=== PATIENT | female | born 1950 | race Caucasian/White ===

== ENCOUNTER 2017-12-21 17:09 | Inpatient (IN) | payer MEDICARE, OTHER ==
[2017-12-21] MEDS: CEFEPIME 2GM/50 ML (PMX) 50 ML IVPB (20:27)
[2017-12-21] MEDS: ACETAMINOPHEN 325 MG TAB PO (20:27)
[2017-12-21] MEDS: SODIUM CHLORIDE 0.9% 1L BAG IV* (20:29)
[2017-12-21 20:34] LABS: ADD MAN DIFF? NO
[2017-12-21 20:37] LABS: ADD UMIC YES; UR AMORPHOUS CRYSTAL FEW /HPF (NONE SEEN); UR ASCORBIC ACID NEGATIVE (NEGATIVE); UR BACTERIA FEW /HPF (NONE SEEN); UR BILIRUBIN (Dip) 1+ mg/dL (NEGATIVE); UR BLOOD (Dip) NEGATIVE (NEGATIVE); UR CLARITY TURBID (CLEAR); UR COLOR YELLOW (YELLOW); UR GLUCOSE (Dip) 1+ mg/dL (NEGATIVE); UR KETONES (Dip) 1+ mg/dL (NEGATIVE); UR LEUKOCYTE ESTERASE (Dip) 1+ Leu/ul (NEGATIVE); UR MUCUS MODERATE /HPF (NONE SEEN); UR NITRITE (Dip) NEGATIVE (NEGATIVE); UR NONSQUAMOUS EPITHELIAL CELL 1 /HPF (NONE SEEN); UR RBC 2 /HPF (0-5); UR SQUAMOUS EPITHELIAL CELL MODERATE /HPF (FEW); UR TOTAL PROTEIN (Dip) 2+ mg/dl (NEGATIVE); UR UROBILINOGEN (Dip) NEGATIVE (NEGATIVE); UR WBC 12 /HPF (0-5)
[2017-12-21 20:38] LABS: ABNORMAL IP MESSAGE 1; BASOPHIL # 0.1 10^3/ul (0.0-0.1); BASOPHILS % 0.4 % (0.0-2.0); HEMATOCRIT 44.5 % (37.0-47.0); LYMPHOCYTES # 0.6 10^3/ul (0.8-2.9); LYMPHOCYTES % 3.7 % (15.0-51.0); MEAN CORPUSCULAR HEMOGLOBIN 26.5 pg (29.0-33.0); MEAN CORPUSCULAR HGB CONC 31.5 g/dl (32.0-37.0); MEAN CORPUSCULAR VOLUME 84.1 fl (82.0-101.0); MONOCYTE # 0.4 10^3/ul (0.3-0.9); MONOCYTES % 2.5 % (0.0-11.0); NEUTROPHILS % 93.1 % (39.0-77.0); PLATELET COUNT 182 10^3/UL (140-415); RED BLOOD COUNT 5.29 10^6/ul (4.20-5.40); RED CELL DISTRIBUTION WIDTH 14.1 % (11.5-14.5)
[2017-12-21] MEDS: ONDANSETRON 4 MG INJ IV (20:47)
[2017-12-21] MEDS: VANCOMYCIN 1 GM (PMX) 250 ML IVPB (20:48)
[2017-12-21] MEDS: HYDROmorphONE 1 MG/5 ML IV SYRINGE IV (20:48)
[2017-12-21 20:52] LABS: POSITIVE DIFF @See below
[2017-12-21 20:53] LABS: ALANINE AMINOTRANSFERASE 49 IU/L (13-69); ALBUMIN 4.1 g/dl (3.3-4.9); ALBUMIN/GLOBULIN RATIO 1.13; ALKALINE PHOSPHATASE 76 IU/L (42-121); AMYLASE 69 U/L (11-123); ANION GAP 17 (8-16); ASPARTATE AMINO TRANSFERASE 50 IU/L (15-46); BILIRUBIN,INDIRECT 0.4 mg/dl (0-1.1); BILIRUBIN,TOTAL 0.4 mg/dl (0.2-1.3); BLOOD UREA NITROGEN 21 mg/dl (7-20); CALCIUM 9.5 mg/dl (8.4-10.2); CARBON DIOXIDE 28 mmol/L (21-31); CHLORIDE 99 mmol/L (97-110); GLUCOSE 219 mg/dl (70-220); LIPASE 112 U/L (23-300); POTASSIUM 4.8 mmol/L (3.5-5.1); SODIUM 139 mmol/L (135-144); TOTAL PROTEIN 7.7 g/dl (6.1-8.1)
[2017-12-21 20:58] LABS: LACTIC ACID 2.3 mmol/L (0.5-2.0)
[2017-12-21 21:01] LABS: INR 0.94; PROTIME 12.7 Sec (11.9-14.9)
[2017-12-21 21:02] LABS: PARTIAL THROMBOPLASTIN TIME 28.7 Sec (25.0-35.0)
[2017-12-21 21:09] LABS: TROPONIN-I < 0.012 ng/ml (0.000-0.120)
[2017-12-21] MEDS: LORAZEPAM 2 MG INJ IV (21:33)
[2017-12-21] MEDS: SOD CHLORIDE 0.9% 100 ML (22:44)
[2017-12-21] MEDS: IOHEXOL 300MG/ML 150 ML BTL (22:44)
[2017-12-21 23:24] LABS: LACTIC ACID 1.4 mmol/L (0.5-2.0)
[2017-12-22] MEDS ORDERED: ONDANSETRON 4 MG INJ IV
[2017-12-22] MEDS: LORAZEPAM 2 MG INJ IV ×2 (00:13→12:16)
[2017-12-22 00:33] LABS: LACTIC ACID 1.7 mmol/L (0.5-2.0)
[2017-12-22] MEDS: LABETALOL HCL 20MG INJ IV (02:44)
[2017-12-22] MEDS: DEXTROSE 5%-0.45% NACL 1,000 ML IV (02:48)
[2017-12-22] MEDS ORDERED: GLUCAGON 1 MG INJ IM (03:00)
[2017-12-22] MEDS ORDERED: GLUCOSE GEL 15 GRAM TUBE BUCCAL (03:00)
[2017-12-22] MEDS ORDERED: DEXTROSE 50% 50 ML SYRINGE IV ×2 (03:00)
[2017-12-22] MEDS ORDERED: GLUCOSE GEL 15 GRAM TUBE PO ×2 (03:00)
[2017-12-22] MEDS: METHYLPREDNISOLONE 125 MG INJ IV (03:44)
[2017-12-22] MEDS: LEVALBUTEROL (NEB) 0.63 MG/3 ML AMP HHN (03:58)
[2017-12-22] MEDS ORDERED: IPRATROPIUM (NEB) 0.5 MG/2.5 ML AMP HHN (04:00)
[2017-12-22] MEDS ORDERED: morphine 2 MG INJ IV ×2 (04:30→14:30)
[2017-12-22] MEDS: ACETAMINOPHEN 325 MG TAB PO ×2 (05:27→17:59)
[2017-12-22] MEDS: INSULIN ASPART [NOVOLOG] 3 ML PEN SC ×6 (05:46→21:10)
[2017-12-22 06:39] LABS: WHITE BLOOD COUNT 11.4 10^3/ul (4.8-10.8)
[2017-12-22 06:39] LABS: ABNORMAL IP MESSAGE 1; HEMATOCRIT 41.3 % (37.0-47.0); HEMOGLOBIN 12.7 g/dl (12.0-16.0); MEAN CORPUSCULAR HEMOGLOBIN 26.2 pg (29.0-33.0); MEAN CORPUSCULAR HGB CONC 30.8 g/dl (32.0-37.0); MEAN CORPUSCULAR VOLUME 85.3 fl (82.0-101.0); MEAN PLATELET VOLUME 12.4 fl (7.4-10.4); PLATELET COUNT 169 10^3/UL (140-415); RED BLOOD COUNT 4.84 10^6/ul (4.20-5.40); RED CELL DISTRIBUTION WIDTH 14.4 % (11.5-14.5)
[2017-12-22 06:59] LABS: ADD MAN DIFF? YES; POSITIVE DIFF @See below
[2017-12-22 07:05] LABS: ALANINE AMINOTRANSFERASE 49 IU/L (13-69); ANION GAP 14 (8-16); ASPARTATE AMINO TRANSFERASE 45 IU/L (15-46); BLOOD UREA NITROGEN 13 mg/dl (7-20); CALCIUM 8.2 mg/dl (8.4-10.2); CARBON DIOXIDE 25 mmol/L (21-31); CHLORIDE 104 mmol/L (97-110); CREATININE 0.58 mg/dl (0.44-1.00); GLUCOSE 213 mg/dl (70-220); POTASSIUM 4.5 mmol/L (3.5-5.1); SODIUM 138 mmol/L (135-144)
[2017-12-22 07:06] LABS: ALBUMIN 3.5 g/dl (3.3-4.9); ALBUMIN/GLOBULIN RATIO 1.12; ALKALINE PHOSPHATASE 58 IU/L (42-121); BILIRUBIN,INDIRECT 0.2 mg/dl (0-1.1); BILIRUBIN,TOTAL 0.2 mg/dl (0.2-1.3); TOTAL PROTEIN 6.6 g/dl (6.1-8.1)
[2017-12-22] MEDS: CEFTRIAXONE 1 GM/50 ML (PMX) 50 ML IVPB (08:33)
[2017-12-22] MEDS: FAMOTIDINE 20 MG INJ IV (08:33)
[2017-12-22] MEDS: [UNRECOGNIZED DRUG - OTHER] XX ×3 (11:00→21:00)
[2017-12-22 11:07] LABS: CHOLESTEROL 112 mg/dl (100-200)
[2017-12-22 11:07] LABS: CHOL/HDL RATIO 2.9 RATIO; HDL CHOLESTEROL 38 mg/dl (35-98); LDL CHOLESTEROL,CALCULATED 56 mg/dl; TRIGLYCERIDES 88 mg/dl (0-149)
[2017-12-22 11:12] LABS: ANISOCYTOSIS 2+ (0-0); BAND NEUTROPHILS % (M) 18 % (0-4); LYMPHOCYTES #M 0.5 10^3/ul (0.8-2.9); LYMPHOCYTES % (M) 5 % (15-51); PLATELET ESTIMATE NORMAL; POLYCHROMASIA 3+ (0-0); SEGMENTED NEUTROPHILS (M) % 77 % (39-77)
[2017-12-22 11:12] LABS: HEMOGLOBIN A1C 9.3 % (0-5.9)
[2017-12-22] MEDS: HEPARIN 5,000 UNIT/0.5 ML VIAL SC (20:40)
[2017-12-22] MEDS ORDERED: NON-FORMULARY/PATIENT OWN MED (Omeprazole* (Prilosec*) 20 MG) PO (21:00)
[2017-12-23] MEDS: ACETAMINOPHEN 325 MG TAB PO ×2 (02:14→10:39)
[2017-12-23] MEDS: morphine LIQ (10 MG/5 ML) CUP PO ×2 (05:54→21:10)
[2017-12-23 07:44] LABS: ADD MAN DIFF? NO
[2017-12-23 07:52] LABS: BASOPHILS % 0.3 % (0.0-2.0); EOSINOPHILS % 0.1 % (0.0-7.0); HEMATOCRIT 38.7 % (37.0-47.0); HEMOGLOBIN 11.9 g/dl (12.0-16.0); LYMPHOCYTES % 20.2 % (15.0-51.0); MEAN CORPUSCULAR HEMOGLOBIN 26.7 pg (29.0-33.0); MEAN CORPUSCULAR HGB CONC 30.7 g/dl (32.0-37.0); MEAN PLATELET VOLUME 12.6 fl (7.4-10.4); MONOCYTE # 0.7 10^3/ul (0.3-0.9); MONOCYTES % 6.7 % (0.0-11.0); NEUTROPHIL # 7.1 10^3/ul (1.6-7.5); NEUTROPHILS % 72.5 % (39.0-77.0); PLATELET COUNT 171 10^3/UL (140-415); RED BLOOD COUNT 4.45 10^6/ul (4.20-5.40); RED CELL DISTRIBUTION WIDTH 14.1 % (11.5-14.5)
[2017-12-23 07:52] LABS: WHITE BLOOD COUNT 9.8 10^3/ul (4.8-10.8)
[2017-12-23] MEDS: INSULIN ASPART [NOVOLOG] 3 ML PEN SC ×4 (08:20→21:27)
[2017-12-23 08:29] LABS: PHOSPHORUS 3.2 mg/dl (2.5-4.9)
[2017-12-23 08:29] LABS: MAGNESIUM 1.5 mg/dl (1.7-2.5)
[2017-12-23 08:45] LABS: ANION GAP 12 (8-16); BLOOD UREA NITROGEN 16 mg/dl (7-20); CALCIUM 8.6 mg/dl (8.4-10.2); CARBON DIOXIDE 31 mmol/L (21-31); CHLORIDE 102 mmol/L (97-110); CREATININE 0.62 mg/dl (0.44-1.00); GLUCOSE 149 mg/dl (70-220); POTASSIUM 4.3 mmol/L (3.5-5.1); SODIUM 141 mmol/L (135-144)
[2017-12-23] MEDS: FUROSEMIDE 20 MG TAB PO (08:49)
[2017-12-23] MEDS: FAMOTIDINE 20 MG INJ IV (08:49)
[2017-12-23] MEDS: ASPIRIN (EC) 81 MG TAB PO (08:49)
[2017-12-23] MEDS: CEFTRIAXONE 1 GM/50 ML (PMX) 50 ML IVPB (08:49)
[2017-12-23] MEDS ORDERED: NON-FORMULARY/PATIENT OWN MED (Liraglutide (Victoza 3-Pak) 1.8 MG) SQ (09:00)
[2017-12-23] MEDS: HEPARIN 5,000 UNIT/0.5 ML VIAL SC ×2 (09:03→21:27)
[2017-12-23] MEDS: [UNRECOGNIZED DRUG - OTHER] XX ×2 (10:33→17:25)
[2017-12-23] MEDS ORDERED: CEPHALEXIN 500 MG CAP PO (14:00)
[2017-12-23] MEDS: AMOXICILLIN 500 MG CAP PO ×2 (14:49→21:09)
[2017-12-23] MEDS: ACET/BUTAL/CAFF TAB PO (14:49)
[2017-12-23] MEDS: LORAZEPAM 2 MG INJ IV (18:15)
[2017-12-23] MEDS ORDERED: ONDANSETRON 4 MG INJ IV (23:30)
[2017-12-24] MEDS: ZOLPIDEM 5 MG TAB PO (00:26)
[2017-12-24] MEDS: morphine LIQ (10 MG/5 ML) CUP PO (01:28)
[2017-12-24] MEDS: [UNRECOGNIZED DRUG - OTHER] XX ×2 (03:00→11:00)
[2017-12-24] MEDS: AMOXICILLIN 500 MG CAP PO ×3 (05:36→22:25)
[2017-12-24 06:00] LABS: ADD MAN DIFF? NO
[2017-12-24 06:55] LABS: ANION GAP 14 (8-16); BLOOD UREA NITROGEN 16 mg/dl (7-20); CALCIUM 9.1 mg/dl (8.4-10.2); CARBON DIOXIDE 32 mmol/L (21-31); CHLORIDE 96 mmol/L (97-110); CREATININE 0.49 mg/dl (0.44-1.00); GLUCOSE 194 mg/dl (70-220); POTASSIUM 4.3 mmol/L (3.5-5.1); SODIUM 138 mmol/L (135-144)
[2017-12-24] MEDS: INSULIN ASPART [NOVOLOG] 3 ML PEN SC ×4 (08:14→21:05)
[2017-12-24] MEDS: ASPIRIN (EC) 81 MG TAB PO (09:16)
[2017-12-24] MEDS: FUROSEMIDE 20 MG TAB PO (09:16)
[2017-12-24] MEDS: ERGOCALCIFEROL 50,000 UNIT CAP PO (09:17)
[2017-12-24] MEDS: HEPARIN 5,000 UNIT/0.5 ML VIAL SC ×2 (09:19→21:03)
[2017-12-24 11:28] LABS: BASOPHILS % 0.3 % (0.0-2.0); EOSINOPHILS # 0.1 10^3/ul (0.0-0.5); EOSINOPHILS % 0.5 % (0.0-7.0); HEMATOCRIT 41.4 % (37.0-47.0); HEMOGLOBIN 12.9 g/dl (12.0-16.0); LYMPHOCYTES # 1.9 10^3/ul (0.8-2.9); LYMPHOCYTES % 16.9 % (15.0-51.0); MEAN CORPUSCULAR HEMOGLOBIN 26.5 pg (29.0-33.0); MEAN CORPUSCULAR HGB CONC 31.2 g/dl (32.0-37.0); MEAN CORPUSCULAR VOLUME 85.2 fl (82.0-101.0); MEAN PLATELET VOLUME 11.7 fl (7.4-10.4); MONOCYTE # 0.8 10^3/ul (0.3-0.9); MONOCYTES % 6.9 % (0.0-11.0); NEUTROPHIL # 8.2 10^3/ul (1.6-7.5); NEUTROPHILS % 74.8 % (39.0-77.0); PLATELET COUNT 187 10^3/UL (140-415); RED BLOOD COUNT 4.86 10^6/ul (4.20-5.40); RED CELL DISTRIBUTION WIDTH 13.8 % (11.5-14.5)
[2017-12-24] MEDS: ACET/BUTAL/CAFF TAB PO ×3 (12:26→23:21)
[2017-12-24 13:58] LABS: AADO2 Arterial 30.8 mmHg (7.0-24.0); Allen Test ACCEPTAB; Arterial Base Excess 7.1 mmol/L (-3.0-3); Arterial Blood Gas Oxygen Sat 96.4 mmHG (95.0-98.0); Arterial COHb 0.7 % (0.0-3.0); Arterial Fraction of Oxyhgb 95.4 % (93.0-99.0); Arterial HCO3 30.6 mmol/L (22.0-26.0); Arterial MetHb 0.3 % (0.0-1.5); Arterial Total Hemglobin 13.4 g/dl (12.0-18.0); Arterial pCO2 39.4 mmhg (35-45); MODE ROOM AIR; Site Right Radial
[2017-12-24] MEDS: FUROSEMIDE 40 MG INJ IV (14:07)
[2017-12-24 15:05] LABS: D-DIMER 2031.62 ng/ml (<460)
[2017-12-24] MEDS: ACETAMINOPHEN 325 MG TAB PO (19:57)
[2017-12-24] MEDS ORDERED: ZOLPIDEM 5 MG TAB PO (21:00)
[2017-12-24] MEDS ORDERED: INSULIN GLARGINE [LANtus] 3 ML PEN SC (21:00)
[2017-12-24] MEDS: INSULIN GLARGINE [LANtus] 3 ML PEN SC (21:06)
[2017-12-24] MEDS: SOD CHLORIDE 0.9% 100 ML (22:08)
[2017-12-24] MEDS: IOHEXOL 100 ML (22:08)
[2017-12-24] MEDS: IOHEXOL 350MG/ML 50 ML BTL (22:09)
[2017-12-25] MEDS: ACETAMINOPHEN 325 MG TAB PO ×2 (02:08→21:47)
[2017-12-25] MEDS: ACET/BUTAL/CAFF TAB PO ×2 (05:03→11:29)
[2017-12-25] MEDS: AMOXICILLIN 500 MG CAP PO ×3 (05:21→21:47)
[2017-12-25 06:21] LABS: ADD MAN DIFF? NO
[2017-12-25 06:28] LABS: BASOPHILS % 0.5 % (0.0-2.0); EOSINOPHILS # 0.1 10^3/ul (0.0-0.5); EOSINOPHILS % 1.4 % (0.0-7.0); HEMOGLOBIN 12.6 g/dl (12.0-16.0); LYMPHOCYTES # 2.9 10^3/ul (0.8-2.9); LYMPHOCYTES % 33.6 % (15.0-51.0); MEAN CORPUSCULAR HEMOGLOBIN 26.1 pg (29.0-33.0); MEAN CORPUSCULAR HGB CONC 30.7 g/dl (32.0-37.0); MEAN CORPUSCULAR VOLUME 85.1 fl (82.0-101.0); MONOCYTE # 0.8 10^3/ul (0.3-0.9); NEUTROPHIL # 4.7 10^3/ul (1.6-7.5); NEUTROPHILS % 54.8 % (39.0-77.0); PLATELET COUNT 205 10^3/UL (140-415); RED BLOOD COUNT 4.82 10^6/ul (4.20-5.40); RED CELL DISTRIBUTION WIDTH 13.8 % (11.5-14.5)
[2017-12-25 06:28] LABS: WHITE BLOOD COUNT 8.6 10^3/ul (4.8-10.8)
[2017-12-25 06:54] LABS: ANION GAP 15 (8-16); BLOOD UREA NITROGEN 14 mg/dl (7-20); CALCIUM 9.4 mg/dl (8.4-10.2); CARBON DIOXIDE 38 mmol/L (21-31); CHLORIDE 92 mmol/L (97-110); CREATININE 0.59 mg/dl (0.44-1.00); GLUCOSE 166 mg/dl (70-220); POTASSIUM 3.7 mmol/L (3.5-5.1); SODIUM 141 mmol/L (135-144)
[2017-12-25] MEDS ORDERED: INSULIN GLARGINE [LANtus] 3 ML PEN SC (08:00)
[2017-12-25] MEDS: ASPIRIN (EC) 81 MG TAB PO (08:05)
[2017-12-25] MEDS: INSULIN ASPART [NOVOLOG] 3 ML PEN SC ×6 (08:09→21:49)
[2017-12-25] MEDS: HEPARIN 5,000 UNIT/0.5 ML VIAL SC ×2 (08:10→21:51)
[2017-12-25] MEDS: INSULIN GLARGINE [LANtus] 3 ML PEN SC (21:50)
[2017-12-26] MEDS: AMOXICILLIN 500 MG CAP PO ×2 (05:26→14:31)
[2017-12-26 05:46] LABS: ADD MAN DIFF? NO
[2017-12-26 05:49] LABS: BASOPHILS % 0.5 % (0.0-2.0); EOSINOPHILS # 0.2 10^3/ul (0.0-0.5); EOSINOPHILS % 2.2 % (0.0-7.0); HEMATOCRIT 40.7 % (37.0-47.0); HEMOGLOBIN 12.5 g/dl (12.0-16.0); LYMPHOCYTES # 3.2 10^3/ul (0.8-2.9); LYMPHOCYTES % 38.2 % (15.0-51.0); MEAN CORPUSCULAR HEMOGLOBIN 26.2 pg (29.0-33.0); MEAN CORPUSCULAR HGB CONC 30.7 g/dl (32.0-37.0); MEAN CORPUSCULAR VOLUME 85.1 fl (82.0-101.0); MEAN PLATELET VOLUME 11.7 fl (7.4-10.4); MONOCYTE # 0.8 10^3/ul (0.3-0.9); MONOCYTES % 9.6 % (0.0-11.0); NEUTROPHILS % 48.4 % (39.0-77.0); NUCLEATED RED BLOOD CELLS% 0.2 /100WBC (0.0-0.0); PLATELET COUNT 224 10^3/UL (140-415); RED BLOOD COUNT 4.78 10^6/ul (4.20-5.40); RED CELL DISTRIBUTION WIDTH 13.6 % (11.5-14.5)
[2017-12-26 05:49] LABS: WHITE BLOOD COUNT 8.3 10^3/ul (4.8-10.8)
[2017-12-26 06:28] LABS: BLOOD UREA NITROGEN 12 mg/dl (7-20); CALCIUM 9.3 mg/dl (8.4-10.2); CHLORIDE 98 mmol/L (97-110); GLUCOSE 146 mg/dl (70-220); POTASSIUM 3.8 mmol/L (3.5-5.1); SODIUM 145 mmol/L (135-144)
[2017-12-26 07:17] LABS: ANION GAP 13 (8-16)
[2017-12-26 07:18] LABS: CARBON DIOXIDE 38 mmol/L (21-31)
[2017-12-26] MEDS: INSULIN ASPART [NOVOLOG] 3 ML PEN SC ×6 (07:58→17:32)
[2017-12-26] MEDS: ASPIRIN (EC) 81 MG TAB PO (08:29)
[2017-12-26] MEDS: HEPARIN 5,000 UNIT/0.5 ML VIAL SC (08:32)
== END 2017-12-26 19:25 | disposition home or self-care (01) | DRG 872 ==
LOC: TEL 23:35 → E/R 17:09 → MS2 12-23 22:36
DX: A41.9 Sepsis, unspecified organism (principal); N39.0 Urinary tract infection, site not specified; Z68.41 Body mass index [BMI] 40.0-44.9, adult; E66.9 Obesity, unspecified; E11.9 Type 2 diabetes mellitus without complications; K29.70 Gastritis, unspecified, without bleeding; F31.9 Bipolar disorder, unspecified; Z85.3 Personal history of malignant neoplasm of breast; G47.33 Obstructive sleep apnea (adult) (pediatric); R51 Headache; R09.02 Hypoxemia; R91.1 Solitary pulmonary nodule; I50.9 Heart failure, unspecified
CPT/HCPCS: 36415; 36600; 70450; 71045; 71275; 74176; 76705; 80048; 80053; 80061; 81001; 82150; 82803; 82962; 83036; 83605; 83690; 83735; 83880; 84100; 84484; 85025; 85378; 85610; 85730; 87040; 87086; 93005; 93306; 94640; 94664; 96374; 96375; 96376; 97162; 99291-25